=== PATIENT | male | born 1980 | race Caucasian/White ===

== ENCOUNTER 2025-05-03 06:29 | Day surgery (SDC) | payer MEDICAID ==
[2025-05-03] MEDS: Lactated Ringers 1,000 ML IV SCH (07:03)
[2025-05-03] MEDS ORDERED: fentaNYL 100 MCG/2 ML SDV ONE (07:33)
[2025-05-03] MEDS ORDERED: Propofol 200 MG/20 ML SDV ONE ×5 (07:33→09:45)
[2025-05-03] MEDS ORDERED: Midazolam 1 MG/ML 2 ML SDV ONE (07:33)
[2025-05-03] MEDS ORDERED: Bupivacaine 0.25%/EPINEPHrine 1:200,000 30 ML SDV ONE (07:47)
[2025-05-03] MEDS: Bupivacaine 0.25%/EPINEPHrine 1:200,000 30 ML SDV ONE (08:33)
[2025-05-03 10:47] VITALS: BP 119/80
[2025-05-03 10:53] VITALS: PULSE 60
== END 2025-05-03 11:18 | disposition home or self-care (01) ==
LOC: JP.SDS 06:29
PROVIDERS: ATTEND Surgery
DX: D17.0 Benign lipomatous neoplasm of skin and subcutaneous tissue of head, face and neck (principal); D17.1 Benign lipomatous neoplasm of skin and subcutaneous tissue of trunk; D17.23 Benign lipomatous neoplasm of skin and subcutaneous tissue of right leg; D17.22 Benign lipomatous neoplasm of skin and subcutaneous tissue of left arm
CPT/HCPCS: 00300; 21012; 21552; 21930; 22903; 26111; 26115; 27327; 27337; 88304; J0665; J0690; J2250; J2704; J3010; J7120